=== PATIENT | male | born 1965 | race Caucasian/White ===

== ENCOUNTER → 2024-05-15 16:05 | Outpatient (REF) | payer OTHER, SELFPAY | LOC: RAD 16:05 | PROVIDERS: ATTENDING PHYSICIAN Nurse Practitioner Family; FAMILY PHYSICIAN Family Medicine | DX: M79.661 Pain in right lower leg (principal) | CPT/HCPCS: 93971 ==

== ENCOUNTER → 2025-04-17 09:40 | Outpatient (REF) | payer BC, SELFPAY | LOC: RCS 09:40 | PROVIDERS: ATTENDING PHYSICIAN Internal Medicine; FAMILY PHYSICIAN Family Medicine | DX: R07.9 Chest pain, unspecified (principal) | CPT/HCPCS: 93017 ==